=== PATIENT | female | born 1965 | race African-American/Black ===

== ENCOUNTER 2016-08-24 20:25 | Emergency (ER) | payer OTHER ==
--- NOTE | ~2016-08-24 | CT2 ---
[facility] A Service of [facility] [place] RADIOLOGY TEXT RESULTS PATIENT: JOCY CONNOR LOCATION: [place] : 65 UNIT #: [id number] AGE: [address]: Girma Celestin MD SEX: F ORDER DR: [id number] [facility] [address] [place], [place] [address] [id number] MR#: [id number] Acc #: [id number] NAME: JOCY CONNOR : 1965 SEX: F STUDY DATE/TIME: 08/24/2016 20:25 UNIT: [facility] ROOM: STUDY DESCRIPTION: CT Abd and Pelv W Cont Attending Physician: Girma Celestin M.D. Ordering Physician: Girma Celestin M.D. Primary Care Physician: Alix Laguerre [facility] IMAGING REPORT This report is preliminary unless electronic signature is present EXAM CT abdomen and pelvis with IV contrast, 08/24/2016 COMPARISON December 01, 2015 and August 26, 2015. INDICATION 51-year-old female with diffuse abdominal pain, nausea and fatigue for [address] exam was performed with one or more of the following radiation dose reduction techniques: automatic exposure control, adjustment of mA and/or kV according to patient size, and iterative reconstruction. FINDINGS Axial CT imaging abdomen and pelvis was performed after IV administration of 100 mL of Isovue-370. Coronal and sagittal reformats were constructed. Small posterior disc protrusions L4-L5 and L5-S1. Mild levocurvature of the lumbar spine perhaps positional or reflecting scoliosis. No acute fractures or suspicious osseous lesions. No acute findings in the lower chest. Gallbladder is unremarkable. There is a hyperenhancing lesion in the dome of the right hepatic lobe measuring up to approximately 1.3 cm which was likely present in November 2014 but not well evaluated due to phase of postcontrast imaging. The pancreas appears atrophic and there is mild diffuse dilatation of the pancreatic duct measuring up to 5 mm. Acuity cannot be stated definitively given comparisons that are either postcontrast or suboptimal postcontrast exams. No evidence of pancreatic mass. The spleen, adrenal glands and kidneys are unremarkable. There appears to be enhancement of the proximal ureters bilaterally. Urinary bladder is unremarkable. No adnexal masses. No evidence of acute appendicitis. No bowel obstruction. There are scattered left colonic and STS. [facility] A Service of [facility] RADIOLOGY TEXT RESULTS PATIENT: JOCY CONNOR LOCATION: [facility] : 65 UNIT #: [id number] AGE: [address]: Girma Celestin MD SEX: F ORDER DR: sigmoid diverticula, without convincing evidence of acute diverticulitis. No free fluid or pneumoperitoneum. Abdominal aorta is normal in caliber with patency of its main branches. There are scattered mesenteric lymph nodes, without pathologic enlarged by CT size criteria. There appears to bed subtle fat stranding adjacent to the pancreas which could possibly represent an acute pancreatitis. Small fat-containing right inguinal hernia. IMPRESSION 1. Subtle nonspecific fat stranding along the pancreas, possibly reflecting an acute pancreatitis. 2. Pancreatic atrophy with dilatation of the pancreatic duct diffusely measuring up to 5 mm, without evidence of an obstructing mass or calculus. This may reflect sequelae of chronic pancreatitis. 3. Small posterior disc protrusions at multiple levels of the lower lumbar spine. 4. Hyperenhancing 1.3 cm lesion in the dome of the right hepatic lobe. This may represent a flash hemangioma. Its stability cannot be ascertained. Further evaluation of outpatient CT abdomen with without IV contrast hepatic protocol is recommended for definitive characterization. 5. Nonspecific apparent enhancement of the [place] of the proximal ureters bilaterally. This may be due to phase of postcontrast imaging but an ascending pyelitis cannot be excluded. Clinical correlation recommended. 6. Extensive diverticulosis without evidence of acute diverticulitis. 7. Small fat-containing right inguinal hernia. Dictated by... Quinn Tidwell M.D. THIS IS AN ELECTRONICALLY VERIFIED REPORT Quinn Tidwell M.D. at 08/29/2016 8:44 AM Juancarlos TD: 08/24/2016 22:24 JOB #: [id number] MEDICAL IMAGING REPORT Page 1 of 1 COPY
[2016-08-24 18:03] LABS: BASOPHIL% 0.3 % (0-2.5); EOSINOPHIL% 0.4 % (0.0-7.0); HEMATOCRIT 40.5 % (35.0-45.0); HEMOGLOBIN 13.5 gm/dL (12.0-16.0); LYMPHOCYTE# 0.8 X10e3 (1.0-3.5); LYMPHOCYTE% 9.5 % (17.0-45.0); MEAN CELL VOLUME 87.3 FL (83-96); MEAN CORPUSCULAR HGB CONC 33.3 g/dL (30-36); MEAN PLATELET VOLUME 9.9 FL (6.5-11.5); MONOCYTE# 0.6 X10e3 (0-1.0); NEUTROPHIL# 6.8 X10e3 (1.5-7.1); NEUTROPHIL% 82.8 % (40-75); PLATELET COUNT 118 X10e3 (140-420); RED BLOOD COUNT 4.64 X10e (3.90-5.30); RED CELL DISTRIBUTION WIDTH 13.6 % (11.0-15.5); WHITE BLOOD COUNT 8.3 X10e3 (4.0-10.5)
[2016-08-24 18:10] LABS: DIFF IND NO
[2016-08-24 18:36] LABS: ALBUMIN SERUM 5.3 g/dL (3.5-5.0); BILIRUBIN, DIRECT 0.1 mg/dL (0.0-0.2); BILIRUBIN,INDIRECT 0.7 mg/dL (0.0-0.9); BILIRUBIN,TOTAL 0.8 mg/dL (0.2-2.0); CALCIUM SERUM 10.3 mg/dL (8.4-10.2); CREATININE SERUM 1.2 mg/dL (0.6-1.4); GLOM FILT RATE Estimated 60.6 mL/min (>60); PROTEIN TOTAL SERUM 9.2 g/dL (6.0-8.3)
[2016-08-24 18:40] LABS: POTASSIUM 2.6 mmol/L (3.5-5.1)
[~2016-08-24 20:25] MED LIST: ACID GONE ANTA355 M1 PO; B COMPLEX1 CA1 PO; B-1100 MG PO; CERTAGEN PO; FOLIC ACID PO; FOLIC ACID1 MG PO; K-DUR20 ME1 PO; K-LOR HOSPITAL20 MEQ PO; KEPPRA500 M2 PO; KEPPRA750 M1 PO; KEPPRA750 MG PO; LISINOPRIL5 MG PO; METFORMIN HCL500 M1 PO; MULTI VITAMIN1 EACH PO; MULTI-VITAMIN1 EAC1 PO; MULTIVITAMIN1 UDCAP PO; NO MEDICATIONS; POTASSIUM CHLO20 ME1 PO; PROTONIX PO; VITAMIN B-1100 M1 PO; ZESTRIL5 MG PO; ZOFRAN ODT4 MG PO
[2016-08-24 20:58] LABS: URINE SOURCE CLEAN CATCH
[2016-08-24 21:02] LABS: URINE APPEARANCE CLOUDY; URINE BILIRUBIN NEG (NEG); URINE BLOOD NEG (NEG); URINE COLOR YELLOW; URINE GLUCOSE NEG (NEG); URINE KETONE 2+ (NEG); URINE LEUKOCYTE ESTERASE TRACE (NEG); URINE NITRATE NEG (NEG); URINE PROTEIN 2+ (NEG); URINE SPECIFIC GRAVITY 1.017 (1.003-1.035)
[2016-08-24 21:05] LABS: CULTURE INDICATED? YES; URINE SQUAMOUS EPITHELIAL CELL MOD /[HPF]
[2016-08-24 21:14] LABS: URINE BACTERIA AUWI 1+ (NEGATIVE)
== END 2016-08-25 00:13 | disposition home or self-care (01) ==
LOC: CED 20:25
DX: K86.0 Alcohol-induced chronic pancreatitis (principal); F10.10 Alcohol abuse, uncomplicated; E11.9 Type 2 diabetes mellitus without complications; I10 Essential (primary) hypertension; Z88.0 Allergy status to penicillin
CPT/HCPCS: 36415; 74177; 80048; 80076; 81003; 83690; 83735; 84703; 85025; 87086; 96361; 96365; 96366; 96374; 96375; 99284; G0480; J1170; J2405; Q9967

== ENCOUNTER 2016-11-16 10:51 | Emergency (ER) | payer OTHER ==
--- NOTE | ~2016-11-16 | EKG ---
PATIENT: JOCY CONNOR UNIT #: [id number] Ventricular Rate: 103 BPM Atrial Rate: 103 BPM P-R Interval: 160 ms QRS Duration: 72 ms Q-T Interval: 396 ms QTC Calculation(Bezet): 518 ms P Bradford: 60 degrees Calculated R Bradford: 52 degrees Calculated T Bradford: 45 degrees Diagnosis Line: Sinus tachycardia Diagnosis Line: Otherwise normal ECG Diagnosis Line: When compared with ECG of 26-JUN-2016 15:51, Diagnosis Line: Nonspecific T wave abnormality no longer evident Diagnosis Line: in Anterior leads Diagnosis Line: Confirmed by NABIL DUTTA MD ([id number]) on Diagnosis Line: 11/17/2016 7:23:38 AM INTERPRETING : [place]
[2016-11-16 11:49] LABS: BASOPHIL# 0.1 X10e3 (0-0.3); BASOPHIL% 0.5 % (0-2.5); HEMATOCRIT 39.4 % (35.0-45.0); HEMOGLOBIN 12.9 gm/dL (12.0-16.0); LYMPHOCYTE# 0.8 X10e3 (1.0-3.5); MEAN CELL VOLUME 90.8 FL (83-96); MEAN CORPUSCULAR HEMOGLOBIN 29.7 PG (28-34); MEAN CORPUSCULAR HGB CONC 32.7 g/dL (30-36); MEAN PLATELET VOLUME 10.2 FL (6.5-11.5); MONOCYTE# 0.5 X10e3 (0-1.0); MONOCYTE% 4.5 % (3.0-12.0); NEUTROPHIL# 10.5 X10e3 (1.5-7.1); PLATELET COUNT 118 X10e3 (140-420); RED BLOOD COUNT 4.34 X10e (3.90-5.30); RED CELL DISTRIBUTION WIDTH 13.9 % (11.0-15.5)
[2016-11-16 11:51] LABS: DIFF IND NO
[2016-11-16 12:04] LABS: POC - CKMB 3.3 ng/mL (0.0-7.9); POC - TROPONIN <0.05 ng/mL (<=0.05)
[2016-11-16 12:25] LABS: ALBUMIN SERUM 4.8 g/dL (3.5-5.0); BILIRUBIN, DIRECT 0.1 mg/dL (0.0-0.2); BILIRUBIN,INDIRECT 0.5 mg/dL (0.0-0.9); BILIRUBIN,TOTAL 0.6 mg/dL (0.2-2.0); BUN/CREATININE RATIO 32.5; CALCIUM SERUM 8.9 mg/dL (8.4-10.2); CREATININE SERUM 0.8 mg/dL (0.6-1.4); POTASSIUM 3.5 mmol/L (3.5-5.1); PROTEIN TOTAL SERUM 7.9 g/dL (6.0-8.3)
[2016-11-16 12:56] LABS: URINE SOURCE CLEAN CATCH
[2016-11-16 13:06] LABS: URINE APPEARANCE CLEAR; URINE BILIRUBIN NEG (NEG); URINE BLOOD 1+ (NEG); URINE COLOR YELLOW; URINE GLUCOSE NEG (NEG); URINE KETONE 1+ (NEG); URINE LEUKOCYTE ESTERASE NEG (NEG); URINE NITRATE NEG (NEG); URINE PH 5.5 (5-8); URINE PROTEIN 3+ (NEG); URINE SPECIFIC GRAVITY 1.026 (1.003-1.035); URINE UROBILINOGEN 0.2 MG/DL (NEG)
[2016-11-16 13:09] LABS: URBCS1 AUWI 0-2 /[HPF] (0-2); URINE SQUAMOUS EPITHELIAL CELL FEW /[HPF]; UWBCS1 AUWI 0-2 (0-5)
[2016-11-16 13:19] LABS: CULTURE INDICATED? NO; URINE BACTERIA AUWI NEG (NEGATIVE)
== END 2016-11-16 13:45 | disposition home or self-care (01) ==
LOC: CED 10:51
PROVIDERS: Emergency Medicine
DX: E86.0 Dehydration (principal); I10 Essential (primary) hypertension; E11.9 Type 2 diabetes mellitus without complications; G40.909 Epilepsy, unspecified, not intractable, without status epilepticus; Z90.710 Acquired absence of both cervix and uterus; Z88.0 Allergy status to penicillin
CPT/HCPCS: 36415; 80048; 80076; 81003; 82553; 84484; 85025; 93005; 96360; 99285; G0480